=== PATIENT | male | born 1970 | race Caucasian/White ===

== ENCOUNTER 2017-06-13 08:33 | Emergency (ER) | payer OTHER ==
[2017-06-13 08:41] VITALS: BP 144/81; PULSE 75; TEMP 98; BMI 31.1
--- NOTE | 2017-06-13 08:53 | PDOC ---
History of Present Illness - General Chief Complaint: Cold Symptoms Stated Complaint: SOB - YPD Time Seen by Provider: 06/13/17 08:46 History Source: Patient Exam Limitations: No Limitations - History of Present Illness Initial Comments: 06/13/17 09:02 46 yr male c/o sinus congestion, cough with thick productive dark yellow phlegm for 3 days not improving with OTC meds. Pt has history of pneumonia 2 months ago. Pt denies chest pain , no fever or chills. Pt is non smoker 06/13/17 09:10 Past History - Past Medical History Allergies/Adverse Reactions: Allergies Allergy/AdvReac Type Severity Reaction Status Date / Time Opioids - Morphine Analogues Allergy Mild Itching Verified 06/13/17 08:35 [Opioids-Morphine & Related] Home Medications: Ambulatory Orders Atorvastatin Ca [Lipitor] 20 mg PO DAILY 06/16/12 Esomeprazole Mag Trihydrate [Nexium] 40 mg PO DAILY 06/16/12 Amoxicillin/Potassium Clav [Augmentin 875-125 Tablet] 1 each PO BID #14 tablet 06/13/17 Fluticasone Prop 0.05% Nasal [Flonase -] 1 - 2 spray NS DAILY #1 spray.pump Anemia: No Asthma: No Diabetes: No GI Disorders: Yes (GERD) HTN: No Hypercholesterolemia: Yes - Surgical History Abdominal Surgery: Yes GI Surgery: Yes (gastric bipass) - Psycho/Social/Smoking Cessation Hx Anxiety: No Suicidal Ideation: No Smoking Status: No Smoking History: Never smoked Number of Cigarettes Smoked Daily: 0 Hx Alcohol Use: No Drug/Substance Use Hx: No Substance Use Type: None Respiratory Specific PMHX - Complaint Specific PMHX Angina: No Bronchitis: No Pneumonia: Yes Pulmonary Embolus: No TB (Tuberculosis): No Review of Systems - Review of Systems Able to Perform ROS?: Yes Is the patient limited Danish proficient: No Constitutional: No: Symptoms Reported HEENTM: Yes: Symptoms Reported, See HPI, Nose Congestion Respiratory: Yes: See HPI, Cough Cardiac (ROS): No: Symptoms Reported *Physical Exam - Vital Signs Last Vital Signs Temp Pulse Resp BP Pulse Ox 98.0 F 75 18 144/81 98 06/13/17 08:35 06/13/17 08:35 06/13/17 08:35 06/13/17 08:35 06/13/17 08:35 - Physical Exam General Appearance: Yes: Nourished, Appropriately Dressed HEENT: positive: EOMI, LOPEZ, Normal ENT Inspection, TMs Normal, Pharynx Normal, Nasal Congestion, Sinus Tenderness (maxilary, frontal ), Other (post nasal drip) Respiratory/Chest: positive: Lungs Clear, Normal Breath Sounds. negative: Paradoxal Breathing, Crackles, Rales, Rhonchi, Stridor, Wheezing Musculoskeletal: positive: Normal Inspection Extremity: positive: Normal Capillary Refill, Normal Inspection, Normal Range of Motion Integumentary: positive: Normal Color, Dry, Warm Neurologic: positive: Fully Oriented, Alert, Normal Mood/Affect, Normal Response , Motor Strength 04/02 Medical Decision Making - Medical Decision Making 06/13/17 09:14 cc: sinus congestion, tenderness, post nasal drip productive cough will treat for sinus infection, URI pt non toxic speaking clearly full sentences no distress pt is a [employer] asking to be relieved of duty today for illness will give note to return to work when cleared by employee health pt agrees with plan all questions asked and answered *DC/Admit/Observation/Transfer Diagnosis at time of Disposition: Cough Acute frontal sinusitis Qualifiers: Recurrence: not specified as recurrent Qualified Code(s): J01.10 - Acute frontal sinusitis, unspecified - Discharge Dispostion Disposition: HOME Condition at time of disposition: Good - Prescriptions Prescriptions: Amoxicillin/Potassium Clav [Augmentin 875-125 Tablet] 1 each PO BID #14 tablet Fluticasone Prop 0.05% Nasal [Flonase -] 1 - 2 spray NS DAILY #1 spray.pump - Patient Instructions Additional Instructions: drink pleanty of water to stay hydrated take the medication as prescribed follow with your doctor this week for follow up Return to ER for any worsening symptoms - Post Discharge Activity Work/School Note: Back to Work
== END 2017-06-13 08:50 | disposition home or self-care (01) ==
LOC: JERFT 08:33 → JER 08:33 → JERFT 08:50
DX: J01.10 Acute frontal sinusitis, unspecified (principal)
CPT/HCPCS: 99281-25

== ENCOUNTER 2019-02-18 15:55 | Emergency (ER) | payer BC, OTHER ==
[2019-02-18 16:06] VITALS: BP 145/86; PULSE 77; TEMP 98.6; BMI 31.1
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
[2019-02-18] MEDS ORDERED: KETOROLAC TROMETHAMINE 30 MG/1 ML VIAL IM ONE (17:30)
[2019-02-18] MEDS ORDERED: KETOROLAC TROMETHAMINE 30 MG/1 ML VIAL ONE (17:34)
== END 2019-02-18 17:37 | disposition home or self-care (01) ==
LOC: JERFT 15:55
PROC: 3E0233Z Introduction of Anti-inflammatory into Muscle, Percutaneous Approach (ICD-10-PCS; principal; 2019-02-18)
DX: M54.6 Pain in thoracic spine (principal); V49.49XA Driver injured in collision with other motor vehicles in traffic accident, initial encounter; W22.11XA Striking against or struck by driver side automobile airbag, initial encounter; Y92.414 Local residential or business street as the place of occurrence of the external cause; Y99.0 Civilian activity done for income or pay; Y93.89 Activity, other specified
CPT/HCPCS: 71046-TC-FY; 72070-TC-FY; 99281-25